=== PATIENT | female | born 1980 | race Caucasian/White ===

== ENCOUNTER 2016-09-21 20:10 | Emergency (ER) | payer OTHER ==
[~2016-09-21] VITALS: Ht 167.6 cm; Wt 127.0 kg
[~2016-09-21 20:10] MED LIST: ALBU17I; ALBU6.7H INH; AMIT10 PO; COLE1TAB PO; MEDR10 PO; NEBUMIS6 XX; PRED20 PO; TOPI25 PO; ZOFR4TAB3 PO; ZOLO20CO PO
[2016-09-21 20:11] VITALS: BP 179/99; PULSE 82; RESP 18; TEMP 98.6; O2SAT 99
[2016-09-21] MEDS ORDERED: COLE1TAB2 PO (21:57)
[2016-09-21] MEDS ORDERED: IBUP800T23 PO (21:57)
[2016-09-21] MEDS ORDERED: GABA300C5 PO (21:57)
[2016-09-21] MEDS ORDERED: ALBU6.7H INH (21:58)
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
[2016-09-21 22:20] VITALS: BP 155/90
== END 2016-09-21 22:22 | disposition home or self-care (01) ==
LOC: NEPD 20:10
DX: M54.2 Cervicalgia (principal)
CPT/HCPCS: 99283

== ENCOUNTER 2017-05-26 09:47 | Emergency (ER) | payer BC, OTHER ==
[~2017-05-26] VITALS: Ht 167.6 cm; Wt 137.0 kg
[~2017-05-26 09:47] MED LIST changes: -ALBU17I; -AMIT10 PO; -COLE1TAB PO; +COLE1TAB2 PO; +GABA300C5 PO; +IBUP1TAB7 PO; -MEDR10 PO; -NEBUMIS6 XX; -PRED20 PO; -TOPI25 PO; -ZOFR4TAB3 PO; -ZOLO20CO PO
[2017-05-26 09:48] VITALS: BP 172/93; PULSE 90; RESP 16; TEMP 98.6; O2SAT 95
--- NOTE | 2017-05-26 10:16 | PD ---
HPI Chief Complaint: Respiratory Symptoms Time Seen by Provider: 10:01 Travel History International Travel<30 days: No Contact w/Intl Traveler<30days: No Traveled to known affect area: No History of Present Illness HPI 36-year-old female presents to the emergency department for evaluation of cold symptoms that started 2 days ago. Patient reports fever up to 101 at home. She also reports cough, congestion, chest pain with coughing. She is also concerned she may have a urinary tract infection complaints of dysuria. She has a history of chronic back pain which she takes ibuprofen 800 mg at home for. Patient states that she noticed some vaginal spotting and had some blood in the toilet after she urinated today. She is concerned because she had a hysterectomy in October of this year. Patient states that she still has her ovaries, but does not have uterus or cervix. She has no other complaints at this time. She does report a history of asthma. Moderate severity. PFSH Past Medical History Asthma: Yes Anxiety: Yes Fibromyalgia: Yes Headaches: Yes Respiratory: Yes (ASTHMA) Immunizations Current: Yes Migraines: Yes ?: Not Tubal Ligation: Yes Past Surgical History Cholecystectomy: Yes Hysterectomy: Yes Social History Alcohol Use: Yes (RARE) Tobacco Use: No Substance Use: No Allergies-Medications (Allergen,Severity, Reaction): Coded Allergies: azithromycin (Verified Allergy, Intermediate, rash, 05/26/17) povidone-iodine (Verified Allergy, Intermediate, BURNING, 05/26/17) tramadol (Verified Allergy, Intermediate, hives, 05/26/17) cephalexin (Verified Allergy, Mild, ITCHY, 05/26/17) Reported Meds & Prescriptions Reported Meds & Active Scripts Active Reported Proventil Hfa 6.7 GM Inh (Albuterol Sulfate) 90 Mcg/Act Aer 2 Puff INH Q4HR PRN Colestipol (Colestipol HCl) 1 Gm Tab 1 Gm PO TID Gabapentin 300 Mg Cap 300 Mg PO QID Ibuprofen 800 Mg Tab 800 Mg PO BID PRN Review of Systems Except as stated in HPI: all other systems reviewed are Neg Physical Exam Narrative GENERAL: Well-nourished, well-developed female patient, ambulatory. Afebrile. SKIN: Focused skin assessment warm/dry. HEAD: Normocephalic. Atraumatic. EYES: No scleral icterus. No injection or drainage. NECK: Supple, trachea midline. No JVD or lymphadenopathy. CARDIOVASCULAR: Regular rate and rhythm without murmurs, gallops, or rubs. RESPIRATORY: Breath sounds equal bilaterally. No accessory muscle use. Lungs sounds are clear to auscultation. Dry cough noted. GASTROINTESTINAL: Abdomen soft, non-tender, nondistended. No abdominal tenderness to palpation. MUSCULOSKELETAL: No cyanosis, or edema. BACK: Nontender without obvious deformity. No CVA tenderness. GENITOURINARY: Normal external genitalia without lesions or erythema. Vaginal vault without blood or drainage. Bilateral adnexa nontender without masses. Physical exam was done with RN at bedside. Data Data Last Documented VS Vital Signs Date Time Temp Pulse Resp B/P (MAP) Pulse Ox O2 Delivery O2 Flow Rate FiO2 05/26/17 10:09 18 96 Room Air 05/26/17 09:48 98.6 90 172/93 (119) Orders Orders Complete Blood Count With Diff (05/26/17 10:10) Comprehensive Metabolic Panel (05/26/17 10:10) Urinalysis - C+S If Indicated (05/26/17 10:10) Chest, Single Ap (05/26/17 ) Influenzae A/B Antigen (05/26/17 10:10) Labs Laboratory Tests Test 05/26/17 10:14 White Blood Count 8.2 TH/MM3 Red Blood Count 4.65 MIL/MM3 Hemoglobin 12.9 GM/DL Hematocrit 38.9 % Mean Corpuscular Volume 83.7 FL Mean Corpuscular Hemoglobin 27.8 PG Mean Corpuscular Hemoglobin Concent 33.2 % Red Cell Distribution Width 15.5 % Platelet Count 265 TH/MM3 Mean Platelet Volume 8.7 FL Neutrophils (%) (Auto) 65.3 % Lymphocytes (%) (Auto) 20.7 % Monocytes (%) (Auto) 9.6 % Eosinophils (%) (Auto) 3.9 % Basophils (%) (Auto) 0.5 % Neutrophils # (Auto) 5.3 TH/MM3 Lymphocytes # (Auto) 1.7 TH/MM3 Monocytes # (Auto) 0.8 TH/MM3 Eosinophils # (Auto) 0.3 TH/MM3 Basophils # (Auto) 0.0 TH/MM3 CBC Comment DIFF FINAL Differential Comment Urine Color YELLOW Urine Turbidity CLEAR Urine pH 5.5 Urine Specific [place] 1.018 Urine Protein NEG mg/dL Urine Glucose (UA) NEG mg/dL Urine Ketones NEG mg/dL Urine Occult Blood MOD Urine Nitrite NEG Urine Bilirubin NEG Urine Urobilinogen LESS THAN 2.0 MG/DL Urine Leukocyte Esterase TRACE Urine RBC 111 /hpf Urine WBC 3 /hpf Urine Squamous Epithelial Cells 1 /hpf Urine Mucus FEW /lpf Microscopic Urinalysis Comment CULT NOT INDICATED Blood Urea Nitrogen 8 MG/DL Creatinine 0.60 MG/DL Random Glucose 92 MG/DL Total Protein 7.3 GM/DL Albumin 3.3 GM/DL Calcium Level 8.6 MG/DL Alkaline Phosphatase 65 U/L Aspartate Amino Transf (AST/SGOT) 16 U/L Alanine Aminotransferase (ALT/SGPT) 21 U/L Total Bilirubin 0.2 MG/DL Sodium Level 137 MEQ/L Potassium Level 4.1 MEQ/L Chloride Level 105 MEQ/L Carbon Dioxide Level 24.5 MEQ/L Anion Gap 8 MEQ/L Estimat Glomerular Filtration Rate 113 ML/MIN MDM Medical Decision Making Medical Screen Exam Complete: Yes Emergency Medical Condition: Yes Medical Record Reviewed: Yes Differential Diagnosis URI versus bronchitis versus pneumonia versus UTI versus pyelonephritis versus vaginal laceration Narrative Course 36-year-old female presents to the emergency department for evaluation of cold symptoms for 2 days as well as vaginal spotting that started approximately an hour ago. Patient also reports UTI symptoms. This may be the source for the bleeding. CBC, CMP, chest x-ray, UA are ordered and pending. Influenza swab is ordered and pending. Speculum examination will be completed. Speculum examination shows no evidence of vaginal bleeding. CBC shows no acute abnormality. CMP shows no acute abnormality. UA shows moderate occult blood, trace leukocyte esterase, 111 RBC, 3 WBC. Influenza is negative. Patient does report history of kidney stones. She reports mild back discomfort. I discussed her follow up with urologist. I will treat her for urinary tract infection due to having symptoms with some mild WBCs. She'll be discharged prescription for Macrobid. She is return here for any acute worsening of symptoms. Patient verbalizes agreement and understanding. The patient was discharged in stable condition with instructions, including return instructions and follow up instructions. Diagnosis Primary Impression: Upper respiratory infection Qualified Codes: J06.9 - Acute upper respiratory infection, unspecified; B97.89 - Other viral agents as the cause of diseases classified elsewhere Additional Impression: Hematuria Qualified Codes: R31.9 - Hematuria, unspecified Referrals: Km An DO call for appointment Primary Care Physician call for appointment Patient Instructions: General Instructions, Hematuria (ED), Upper Respiratory Infection (ED) Additional Instructions: Take Macrobid as directed until gone. Follow-up with your primary care physician. Follow-up with urologist. Dr. An is the urologist half section ironer. Return to the emergency department for any acute worsening of symptoms. Med/Other Pt SpecificInfo: Prescription(s) given Scripts Nitrofurantoin Monohydrate Macrocrystals (Macrobid) 100 Mg Capsule 100 MG PO BID for Infection for 7 Days, #14 CAP 0 Refills Prov: Suzy Nolasco 05/26/17 Disposition: 01 DISCHARGE HOME Condition: Stable Suzy Nolasco May 26, 2017 10:16
--- NOTE | 2017-05-26 10:41 | RADRPT ---
EXAM DATE/TIME: 05/26/2017 10:24 [facility] COMPARISON: No previous studies available for comparison. INDICATIONS : Chest pain and shortness of breath. MEDICAL HISTORY : Fibromyalgia, Asthma. SURGICAL HISTORY : Cholecystectomy. Hysterectomy. Tubal ligation. ENCOUNTER: Initial ACUITY: 1 day PAIN SCORE: 5/10 LOCATION: Left chest FINDINGS: A single view of the chest demonstrates the lungs to be symmetrically aerated without evidence of mas s, infiltrate or effusion. The cardiomediastinal contours are unremarkable. Osseous structures are intact. CONCLUSION: No acute disease. Ervin Pacheco MD on May 26, 2017 at 10:39 Board Certified Radiologist. This report was verified electronically.
[2017-05-26 10:47] LABS: AUTOMATED NEUTROPHIL # 5.3 TH/MM3 (1.8-7.7); BASOPHIL % 0.5 % (0.0-2.0); EOSINOPHIL # 0.3 TH/MM3 (0-0.4); EOSINOPHIL % 3.9 % (0.0-4.0); HEMATOCRIT 38.9 % (35.0-46.0); HEMOGLOBIN 12.9 GM/DL (11.6-15.3); LYMPH % 20.7 % (9.0-44.0); LYMPHOCYTE # 1.7 TH/MM3 (1.0-4.8); MEAN CELL VOLUME 83.7 FL (80.0-100.0); MEAN CORPUSCULAR HEMOGLOBIN 27.8 PG (27.0-34.0); MEAN CORPUSCULAR HGB CONC 33.2 % (32.0-36.0); MEAN PLATELET VOLUME 8.7 FL (7.0-11.0); MONO % 9.6 % (0.0-8.0); MONOCYTE # 0.8 TH/MM3 (0-0.9); NEUT % 65.3 % (16.0-70.0); PLATELET COUNT 265 TH/MM3 (150-450); RED BLOOD COUNT 4.65 MIL/MM3 (4.00-5.30); RED CELL DISTRIBUTION WIDTH 15.5 % (11.6-17.2); WHITE BLOOD COUNT 8.2 TH/MM3 (4.0-11.0)
[2017-05-26 10:53] LABS: BILIRUBIN, URINE NEG (NEG); BLOOD, URINE MOD (NEG); GLUCOSE,URINE NEG (NEG); KETONE, URINE NEG (NEG); MUCUS URINE FEW /lpf (OCC); NITRITE,URINE NEG (NEG); PH, URINE 5.5 (5.0-8.5); SQUAMOUS EPITHELIAL CELL URINE 1 /hpf (0-5); URINE COLOR YELLOW (YELLW/STRAW); URINE LEUKOCYTE ESTERASE TRACE (NEG)
[2017-05-26 10:55] LABS: ALBUMIN 3.3 GM/DL (3.4-5.0); ALT (GPT) 21 U/L (10-53); AST (GOT) 16 U/L (15-37); BICARBONATE 24.5 MEQ/L (21.0-32.0); BLOOD UREA NITROGEN 8 MG/DL (7-18); CALCIUM 8.6 MG/DL (8.5-10.1); CHLORIDE 105 MEQ/L (98-107); GLOMERULAR FILTRATION RATE 113 ML/MIN (>89); GLUCOSE,RANDOM 92 MG/DL (74-106); SODIUM (NA) 137 MEQ/L (136-145)
[2017-05-26 10:58] LABS: ALKALINE PHOSPHATASE 65 U/L (45-117); TOTAL BILIRUBIN ADULT 0.2 MG/DL (0.2-1.0); TOTAL PROTEIN 7.3 GM/DL (6.4-8.2)
[2017-05-26] MEDS ORDERED: MACR100C2 PO (11:21)
[2017-05-26 11:30] VITALS: BP 122/81; TEMP 97.8
== END 2017-05-26 11:30 | disposition home or self-care (01) ==
LOC: NEPD 09:47
DX: J06.9 Acute upper respiratory infection, unspecified (principal); B97.89 Other viral agents as the cause of diseases classified elsewhere; J45.909 Unspecified asthma, uncomplicated
CPT/HCPCS: 71010; 80053; 81001; 85025; 87804; 99284